=== PATIENT | male | born 1980 | race Hispanic/Latino ===

== ENCOUNTER 2016-09-02 21:02 | Observation (INO) | payer OTHER ==
[2016-09-02] MEDS ORDERED: Multivitamin (MVI) 10 ML, Folic Acid 1 MG, Thiamine 100 MG in Dextrose 5%/0.45% NS 1,00... IV ONE (21:35)
--- NOTE | 2016-09-02 21:47 | ED PDOC ---
HPI: Chest Pain Time Seen by Provider: 09/02/16 21:20 Chief Complaint (Nursing): Chest Pain Chief Complaint (Provider): Chest Pain History Per: Patient History/Exam Limitations: no limitations Onset/Duration Of Symptoms: Days (1) Current Symptoms Are (Timing): Still Present Severity: Moderate Pain Scale Rating Of: 7 Quality: "Pain" Associated Symptoms: denies: Nausea, Dyspnea, Diaphoresis, Syncope Exacerbating Factors: Movement Alleviating Factors: None Additional Complaint(s): 35 year old male with medical history alcoholism, anxiety presents to the ED accompanied by spouse with complaint of left sided chest pain. Patient states woke up this morning with left sided chest pain. He believed it was anxiety so took 3 x 0.25mg of Xanax. Slept throughout day, woke up 30 mins prior to arrivial with same pain that intensified and with left hand numbness. Patient states anxiousness worsened and worried he may have had a heart attack. Pain is worse when he touches it. Patient also having bilateral hand tremors. Patient states last drink was 2 days ago, 6 beers. Patient states previous history of DTs with hospital admissions, April being the last time at [facility]. Denies fever, chills, leg pain, headache, abdominal pain, back pain, recent travel, shortness of breath. Feels like his heart is racing. PMD: None. Past Medical History Reviewed: Historical Data, Nursing Documentation, Vital Signs Vital Signs: Last Vital Signs Temp 97.8 F 09/02/16 21:07 Pulse 104 H 09/02/16 23:58 Resp 16 09/02/16 23:31 BP 127/86 09/02/16 21:07 Pulse Ox 100 09/02/16 23:58 - Medical History PMH: Anxiety Other PMH: alcohol abuse - Surgical History Surgical History: No Surg Hx - Family History Family History: States: Other - Social History Current smoker - smoking cessation education provided: No Alcohol: > 2 Drinks/Day Drugs: Denies - Home Medications Home Medications: Ambulatory Orders Medication Instructions Recorded ALPRAZolam [Xanax] 1 tab PO PRN PRN 09/02/16 - Allergies Allergies/Adverse Reactions: Allergies Allergy/AdvReac Type Severity Reaction Status Date / Time No Known Allergies Allergy Verified 09/02/16 21:06 Wells Criteria for PE - Wells Criteria for Pulmonary Embolism Clinical Signs and Symptoms of DVT: No P.E is #1 Diagnosis, or Equally Likely: No Heart Rate >100: Yes Immobilization at least 3 days;Surgery previous 4 weeks: No Previous, objectively diagnosed PE or DVT: No Hemoptysis: No Malignancy w/treatment within 6 months, or palliative: No Total Score: 1.5 Review of Systems ROS Statement: Except As Marked, All Systems Reviewed And Found Negative Constitutional: Negative for: Fever, Chills Cardiovascular: Positive for: Chest Pain. Negative for: Light Headedness Respiratory: Negative for: Cough Gastrointestinal: Negative for: Nausea, Vomiting, Abdominal Pain, Diarrhea, Constipation Musculoskeletal: Negative for: Neck Pain Skin: Negative for: Rash Neurological: Negative for: Weakness Psych: Positive for: Anxiety Physical Exam - Reviewed Nursing Documentation Reviewed: Yes Vital Signs Reviewed: Yes - Physical Exam Appears: Positive for: Non-toxic (anxious appearing) Head Exam: Positive for: ATRAUMATIC, NORMAL INSPECTION, NORMOCEPHALIC Skin: Positive for: Normal Color, Warm, Dry Eye Exam: Positive for: Normal appearance, EOMI, PERRL ENT: Positive for: Normal ENT Inspection Neck: Positive for: Normal, Painless ROM, Supple Cardiovascular/Chest: Positive for: Tachycardia (regular rhythm). Negative for : Murmur Respiratory: Positive for: Normal Breath Sounds. Negative for: Rales, Rhonchi, Wheezing Gastrointestinal/Abdominal: Positive for: Normal Exam, Bowel Sounds (present), Soft. Negative for: Tenderness Back: Positive for: Normal Inspection. Negative for: L CVA Tenderness, R CVA Tenderness Extremity: Positive for: Normal ROM. Negative for: Tenderness, Pedal Edema Neurologic/Psych: Positive for: Alert, Oriented, Mood/Affect (anxious) - Laboratory Results Result Diagrams: 09/02/16 22:25 09/02/16 22:25 - ECG ECG: Positive for: Interpreted By Me, Viewed By Me ECG Rhythm: Positive for: Normal QRS, Normal ST Segment, Sinus Tachycardia Rate: 104 O2 Sat by Pulse Oximetry: 100 Pulse Ox Interpretation: Normal - Progress ED Course And Treament: Time: 2119 Initial impression: 35 year old male w/ PMHx of etoh abuse (DTs in past), anxiety with left chest pain, reproducible. DDx includes, but not limited, anxiety vs ACS vs costochondritis vs alcohol withdrawal Plan: * EKG * CARDIAC MONITORING * CBC * CMP * ALCOHOL SERUM * URINE DRUG SCREEN * TROPONIN * BANANA BAG 125cc/hr * ATIVAN 2MG IVP * TORADOL 30MG IVP * ASA 325MG PO * REEVAL Time: 2315 Labs reviewed, notable for elevated alcohol level of 34. Patients symptoms improved. Will admit patient to telemetry with hospitalist service for observation of chest pain and alcohol withdrawal with impending DTs. Disposition - Clinical Impression Clinical Impression: Chest pain, Alcohol withdrawal - Patient ED Disposition Is Patient to be Admitted: Yes Counseled Patient/Family Regarding: Studies Performed, Diagnosis - Disposition Disposition Time: 23:30 Condition: FAIR
[2016-09-02 22:33] LABS: BASO % 0.4 % (0.0-2.0); EOS % 0.4 % (0.0-4.0); HEMATOCRIT 43.3 % (35.0-51.0); LYMPH # 0.7 K/uL (1.0-4.3); LYMPH % 9.3 % (20.0-40.0); MEAN CELL VOLUME 93.4 fl (80.0-94.0); MEAN CORPUSCULAR HEMOGLOBIN 33.1 pg (27.0-31.0); MEAN CORPUSCULAR HGB CONC 35.5 g/dL (33.0-37.0); MEAN PLATELET VOLUME 8.2 fl (7.2-11.7); MONO # 0.6 K/uL (0.0-0.8); MONO % 7.9 % (0.0-10.0); NEUT # 6.5 K/uL (1.8-7.0); NRBC % 0.1 % (0.0-0.0); RED CELL DISTRIBUTION WIDTH 12.4 % (11.5-14.5); WHITE BLOOD COUNT 7.9 K/uL (4.8-10.8)
[2016-09-02 22:42] LABS: ALB/GLOB RATIO 1.3 (1.0-2.1); ALCOHOL SERUM 39 mg/dl (0-10); ALKALINE PHOSPHATASE 111 U/L (38-126); ALT/SGPT 61 U/L (21-72); AST/SGOT 99 U/L (17-59); BILIRUBIN,TOTAL 0.6 mg/dl (0.2-1.3); BLOOD UREA NITROGEN 10 mg/dl (9-20); CALCIUM 9.5 mg/dL (8.4-10.2); CARBON DIOXIDE 24 mmol/L (22-30); CHLORIDE 101 mmol/L (98-107); GFR AFRICAN-AMERICAN > 60; GLUCOSE,RANDOM 101 mg/dL (75-110); POTASSIUM 4.3 MMOL/L (3.6-5.0); SODIUM 141 mmol/l (132-148); TOTAL PROTEIN 8.7 G/DL (6.3-8.2)
[2016-09-02 22:52] LABS: PARTIAL THROMBOPLASTIN TIME 26.8 SECONDS (23.3-32.5)
[2016-09-02 23:06] LABS: PLATELET COUNT 91 K/uL (130-400)
[2016-09-02 23:27] LABS: LARGE PLATELETS PRESENT; NEUTROPHIL 80 % (42-75); TOTAL CELLS COUNTED 100
[2016-09-02] MEDS ORDERED: Multivitamin (MVI) 10 ML, Thiamine 100 MG, Folic Acid 1 MG, Magnesium Sulfate 1 GM in S... IV ONE (23:27)
--- NOTE | 2016-09-02 23:41 | CP.PCM.HP ---
History of Present Illness - History of Present Illness History of Present Illness: CC: EtOH w/d, c/o CP HPI: 29 y/o male with MHx significant for EtOH abuse and anxiety who presented to the ER with tremors as well as L sided CP. Per patient CP started this AM, accompanied by L hand numbness. Patient states he took Xanax thinking it was anxiety, but symptoms worsened so he came in. Denies f/c/n/b/d. Denies cough, SOB, diaphoresis, syncope, palpitations. Patient states CP is worse sometimes with deep breathing. Has been admitted to hospital for DT in the past. Last drink was about 2 days ago, and he had 6 drinks at the time. ROS: 14 systems reviewed, negative other than HPI MHx: EtOH abuse, anxiety SHx: None Allergies: NKDA Medications: as per med list Family Hx: Unable to provide any relevant info Social Hx: Lives with family, regular EtOH consumption of >5 drinks in a sitting , no regular tobacco Present on Admission - Present on Admission Any Indicators Present on Admission: No Past Patient History - Past Social History Alcohol: > 2 Drinks/Day Drugs: Denies - CARDIAC Hx Cardiac Disorders: No - PULMONARY Hx Respiratory Disorders: No - NEUROLOGICAL Hx Neurological Disorder: No - HEENT Hx HEENT Problems: No - RENAL Hx Chronic Kidney Disease: No - ENDOCRINE/METABOLIC Hx Endocrine Disorders: No - HEMATOLOGICAL/ONCOLOGICAL Hx Blood Disorders: No - INTEGUMENTARY Hx Dermatological Problems: No - MUSCULOSKELETAL/RHEUMATOLOGICAL Hx Musculoskeletal Disorders: No - GASTROINTESTINAL Hx Gastrointestinal Disorders: No - GENITOURINARY/GYNECOLOGICAL Hx Genitourinary Disorders: No - PSYCHIATRIC Hx Anxiety: Yes - SURGICAL HISTORY Hx Surgeries: No - ANESTHESIA Hx Anesthesia: No Meds Allergies/Adverse Reactions: Allergies Allergy/AdvReac Type Severity Reaction Status Date / Time No Known Allergies Allergy Verified 09/02/16 21:06 Physical Exam - Constitutional Appears: No Acute Distress - Head Exam Head Exam: ATRAUMATIC, NORMOCEPHALIC - Eye Exam Eye Exam: EOMI, PERRL - ENT Exam ENT Exam: Mucous Membranes Dry - Neck Exam Neck exam: Positive for: Full Rom - Respiratory Exam Respiratory Exam: Clear to Auscultation Bilateral, NORMAL BREATHING PATTERN - Cardiovascular Exam Cardiovascular Exam: REGULAR RHYTHM, +S1, +S2 - GI/Abdominal Exam GI & Abdominal Exam: Normal Bowel Sounds, Soft - Neurological Exam Neurological exam: Alert, CN II-XII Intact, Oriented x3 - Psychiatric Exam Psychiatric exam: Normal Affect, Normal Mood - Skin Skin Exam: Dry, Warm Results - Vital Signs Recent Vital Signs: Last Vital Signs Temp 97.8 F 09/02/16 21:07 Pulse 72 09/02/16 23:31 Resp 16 09/02/16 23:31 BP 127/86 09/02/16 21:07 Pulse Ox 98 09/02/16 23:31 - Labs Result Diagrams: 09/02/16 22:25 09/02/16 22:25 Labs: Laboratory Results - last 24 hr 09/02/16 09/02/16 09/02/16 22:25 22:25 22:25 WBC 7.9 RBC 4.63 Hgb 15.3 Hct 43.3 MCV 93.4 MCH 33.1 H MCHC 35.5 RDW 12.4 Plt Count 91 L MPV 8.2 Neut % (Auto) 82.0 H Lymph % (Auto) 9.3 L Crook % (Auto) 7.9 Eos % (Auto) 0.4 Baso % (Auto) 0.4 Neut # 6.5 Lymph # 0.7 L Crook # 0.6 Eos # 0.0 Baso # 0.0 Neutrophils % (Manual) 80 H Lymphocytes % (Manual) 10 L Monocytes % (Manual) 10 Platelet Estimate Decreased L Large Platelets Present Anisocytosis (manual) Slight PT 10.7 INR 1.03 APTT 26.8 Sodium 141 Potassium 4.3 Chloride 101 Carbon Dioxide 24 Anion Gap 20 BUN 10 Creatinine 0.8 Est GFR ( Amer) > 60 Est GFR (Non-Af Amer) > 60 Random Glucose 101 Calcium 9.5 Total Bilirubin 0.6 AST 99 H ALT 61 Alkaline Phosphatase 111 Troponin I < 0.0120 Total Protein 8.7 H Albumin 5.0 Globulin 3.7 Albumin/Globulin Ratio 1.3 Alcohol, Quantitative 39 H - EKG Data EKG comments: pending - Imaging and Cardiology Chest x-ray Status: Pending Assessment & Plan (1) Chest pain Assessment and Plan: 35 y/o male coming to hospital with EtOH w/d symptoms and some CP. 1) CP -- unlikely to be cardiac -Rec'd one dose ASA, will hold further doses for now -SLNG PRN -Repeat EKG in AM, currently one for tonight is pending -f/u CXR -Serial troponins -AM Lipid panel 2) EtOH withdrawal -Rec'd banana bag -PRN Ativan for w/d symptoms 3) DVT PPx -- SCDs Status: Acute (2) Alcohol withdrawal Status: Acute (3) DVT prophylaxis Status: Acute
[2016-09-03 05:54] LABS: BASO % 0.3 % (0.0-2.0); EOS # 0.1 K/uL (0.0-0.7); EOS % 1.7 % (0.0-4.0); HEMATOCRIT 41.2 % (35.0-51.0); LYMPH # 1.3 K/uL (1.0-4.3); LYMPH % 17.7 % (20.0-40.0); MEAN CELL VOLUME 94.2 fl (80.0-94.0); MEAN CORPUSCULAR HEMOGLOBIN 32.3 pg (27.0-31.0); MEAN CORPUSCULAR HGB CONC 34.3 g/dL (33.0-37.0); MEAN PLATELET VOLUME 8.3 fl (7.2-11.7); MONO # 0.7 K/uL (0.0-0.8); MONO % 10.2 % (0.0-10.0); NEUT # 5.1 K/uL (1.8-7.0); NEUT % 70.1 % (50.0-75.0); NRBC % 0.1 % (0.0-0.0); RED CELL DISTRIBUTION WIDTH 12.4 % (11.5-14.5)
[2016-09-03 05:57] LABS: ALB/GLOB RATIO 1.3 (1.0-2.1); ALKALINE PHOSPHATASE 94 U/L (38-126); ALT/SGPT 59 U/L (21-72); AST/SGOT 82 U/L (17-59); BLOOD UREA NITROGEN 11 mg/dl (9-20); CALCIUM 8.8 mg/dL (8.4-10.2); CARBON DIOXIDE 25 mmol/L (22-30); CHLORIDE 101 mmol/L (98-107); CHOLESTEROL 136 mg/dL (0-199); GFR AFRICAN-AMERICAN > 60; GLUCOSE,RANDOM 115 mg/dL (75-110); POTASSIUM 3.3 MMOL/L (3.6-5.0); SODIUM 137 mmol/l (132-148); TOTAL PROTEIN 7.9 G/DL (6.3-8.2)
[2016-09-03 06:01] LABS: WHITE BLOOD COUNT 7.2 K/uL (4.8-10.8)
[2016-09-03] MEDS ORDERED: Alum-Mag Hydrox-Simethicone Susp (30 mL) PO ONE (06:51)
[2016-09-03 09:00] VITALS: RESP 20
[2016-09-03] MEDS ORDERED: Potassium Chloride 20 mEq ER Tab PO ONE (09:22)
[2016-09-03] MEDS ORDERED: Sodium Chloride 0.9% 1,000 ML IV SCH (10:00)
--- NOTE | 2016-09-03 10:43 | RAD ---
HISTORY: chest pain COMPARISON: No prior. FINDINGS: LUNGS: No active pulmonary disease. PLEURA: No significant pleural effusion identified, no pneumothorax apparent. CARDIOVASCULAR: Normal. OSSEOUS STRUCTURES: No significant abnormalities. VISUALIZED UPPER ABDOMEN: Normal. OTHER FINDINGS: None. IMPRESSION: No active disease.
--- NOTE | 2016-09-03 10:58 | CARD ---
APPROVED REPORT EKG Measurement Heart [id number] <Conclusion> Sinus tachycardia Otherwise normal ECG
[2016-09-03] MEDS: Sucralfate 1 gm/10 ml Oral Susp UD PO SCH ×2 (11:29→15:08)
[2016-09-03 13:45] VITALS: BP 170/96; PULSE 91; TEMP 98.1; O2SAT 98
--- NOTE | 2016-09-03 15:44 | CP.PCM.DIS ---
Provider - Provider Date of Admission: 09/02/16 23:22 Attending physician: Christian Corral MD Time Spent in preparation of Discharge (in minutes): 35 Diagnosis - Discharge Diagnosis (1) Chest pain Status: Acute (2) Alcohol withdrawal Status: Acute (3) DVT prophylaxis Status: Acute Hospital Course - Lab Results Lab Results: Most Recent Lab Values WBC 7.2 K/uL (4.8-10.8) 09/03/16 05:00 RBC 4.37 Mil/uL (4.40-5.90) L 09/03/16 05:00 Hgb 14.1 g/dL (12.0-18.0) 09/03/16 05:00 Hct 41.2 % (35.0-51.0) 09/03/16 05:00 MCV 94.2 fl (80.0-94.0) H 09/03/16 05:00 MCH 32.3 pg (27.0-31.0) H 09/03/16 05:00 MCHC 34.3 g/dL (33.0-37.0) 09/03/16 05:00 RDW 12.4 % (11.5-14.5) 09/03/16 05:00 Plt Count 78 K/uL (130-400) L 09/03/16 05:00 MPV 8.3 fl (7.2-11.7) 09/03/16 05:00 Neut % (Auto) 70.1 % (50.0-75.0) 09/03/16 05:00 Lymph % (Auto) 17.7 % (20.0-40.0) L 09/03/16 05:00 Taylor % (Auto) 10.2 % (0.0-10.0) H 09/03/16 05:00 Eos % (Auto) 1.7 % (0.0-4.0) 09/03/16 05:00 Baso % (Auto) 0.3 % (0.0-2.0) 09/03/16 05:00 Neut # 5.1 K/uL (1.8-7.0) 09/03/16 05:00 Lymph # 1.3 K/uL (1.0-4.3) 09/03/16 05:00 Taylor # 0.7 K/uL (0.0-0.8) 09/03/16 05:00 Eos # 0.1 K/uL (0.0-0.7) 09/03/16 05:00 Baso # 0.0 K/uL (0.0-0.2) 09/03/16 05:00 Neutrophils % (Manual) 80 % (42-75) H 09/02/16 22:25 Lymphocytes % (Manual) 10 % (20-50) L 09/02/16 22:25 Monocytes % (Manual) 10 % (0-10) 09/02/16 22:25 Platelet Estimate Decreased (NORMAL) L 09/02/16 22:25 Large Platelets Present 09/02/16 22:25 Anisocytosis (manual) Slight 09/02/16 22:25 PT 10.7 SECONDS (9.6-11.2) 09/02/16 22:25 INR 1.03 (0.92-1.08) 09/02/16 22:25 APTT 26.8 SECONDS (23.3-32.5) 09/02/16 22:25 Sodium 137 mmol/l (132-148) 09/03/16 05:00 Potassium 3.3 MMOL/L (3.6-5.0) L 09/03/16 05:00 Chloride 101 mmol/L (98-107) 09/03/16 05:00 Carbon Dioxide 25 mmol/L (22-30) 09/03/16 05:00 Anion Gap 14 (10-20) 09/03/16 05:00 BUN 11 mg/dl (9-20) 09/03/16 05:00 Creatinine 0.8 mg/dL (0.8-1.5) 09/03/16 05:00 Est GFR ( Amer) > 60 09/03/16 05:00 Est GFR (Non-Af Amer) > 60 09/03/16 05:00 Random Glucose 115 mg/dL (75-110) H 09/03/16 05:00 Calcium 8.8 mg/dL (8.4-10.2) 09/03/16 05:00 Total Bilirubin 1.0 mg/dl (0.2-1.3) 09/03/16 05:00 AST 82 U/L (17-59) H 09/03/16 05:00 ALT 59 U/L (21-72) 09/03/16 05:00 Alkaline Phosphatase 94 U/L (38-126) 09/03/16 05:00 Troponin I < 0.0120 ng/mL (0.00-0.120) 09/03/16 11:47 Total Protein 7.9 G/DL (6.3-8.2) 09/03/16 05:00 Albumin 4.4 g/dL (3.5-5.0) 09/03/16 05:00 Globulin 3.4 gm/dL (2.2-3.9) 09/03/16 05:00 Albumin/Globulin Ratio 1.3 (1.0-2.1) 09/03/16 05:00 Triglycerides 85 mg/DL (0-149) 09/03/16 05:00 Cholesterol 136 mg/dL (0-199) 09/03/16 05:00 LDL Cholesterol Direct 68 mg/dL (0-129) 09/03/16 05:00 HDL Cholesterol 48 MG/DL (30-70) 09/03/16 05:00 Alcohol, Quantitative 39 mg/dl (0-10) H 09/02/16 22:25 - Hospital Course Hospital Course: 35 y/o gent with hx of Alcoholism came in complaining of chest pain. Pt's Alcohol level = 39. EKG did not show any abnormality. Troponin x 3 were negative. However pt noted to be tremulous. He was admitted to Telemetry for close monitoring. and was started on IVF hydration ,on Librium RTC and prn Ativan. Thiamine and Folic acid given. He vomited while in the marte Pt felt better and signed AMA despite explanation of risks/benefits, need for hydration . Pt is alert, oriented x 3 and has capacity to make medical decisions. (1) Chest pain , ACS ruled out, CP probably related to Alcohol withdrawal Status: Acute Pt vomited and developed CP no SOB, O2 saturation normal CP resolved (2) Alcohol withdrawal Status: Acute started on Ativan IV prn , Librium RTC , Thiamine and FA IVF hydration refused to sty for hydration and tx of his Alcohol withdrawal sxs Pt had had tremors however stable on ambulation, walks to the bathroom and his gait is stable 3. Hypokalemia sec to vomiting replace with PO KCl 4. Thrpombocytopenia likley due to Alcohol (3) DVT prophylaxis Status: Acute no anticoag sec to low Platelet Discharge Exam - Head Exam Head Exam: ATRAUMATIC, NORMAL INSPECTION, NORMOCEPHALIC - Eye Exam Eye Exam: EOMI, Normal appearance, PERRL Pupil Exam: NORMAL ACCOMODATION - ENT Exam ENT Exam: Mucous Membranes Moist, Normal External Ear Exam - Neck Exam Neck exam: Full Rom - Respiratory Exam Respiratory Exam: NORMAL BREATHING PATTERN. absent: Rales, Wheezes, Respiratory Distress - Cardiovascular Exam Cardiovascular Exam: REGULAR RHYTHM, +S1, +S2 - GI/Abdominal Exam GI & Abdominal Exam: Normal Bowel Sounds, Soft. absent: Tenderness - Extremities Exam Extremities exam: full ROM, normal capillary refill, pedal pulses present Additional comments: + hand tremors - Back Exam Back exam: FULL ROM, NORMAL INSPECTION. absent: CVA tenderness (L), CVA tenderness (R), paraspinal tenderness - Neurological Exam Neurological exam: Alert, CN II-XII Intact, Normal Gait, Oriented x3, Reflexes Normal - Psychiatric Exam Psychiatric exam: Normal Affect, Normal Mood - Skin Skin Exam: Dry, Normal Color, Warm Discharge Plan - Discharge Medications Prescriptions: chlordiazePOXIDE [Librium] 10 mg PO Q6 #15 cap Folic Acid 1 mg PO DAILY #30 tab Pantoprazole [Protonix EC Tab] 40 mg PO DAILY #15 ect Thiamine [Vitamin B1 Tab] 100 mg PO DAILY #30 tab - Follow Up Plan Condition: STABLE Disposition: AGAINST MEDICAL ADVICE Additional Instructions: ff up with PMD [facility] referral [facility]
[2016-09-04] MEDS ORDERED: Pantoprazole 40 mg EC Tab PO SCH (09:00)
== END 2016-09-03 15:40 | disposition left against medical advice (07) ==
LOC: H.ER 21:02 → H.ERHOLD 23:22 → H.TEL 09-03 01:03
PROVIDERS: ADMIT Internal Medicine; ATTEND Internal Medicine
DX: F10.239 Alcohol dependence with withdrawal, unspecified (principal); Y90.1 Blood alcohol level of 20-39 mg/100 ml; E87.6 Hypokalemia; F41.9 Anxiety disorder, unspecified